=== PATIENT | male | born 1945 | race Caucasian/White ===

== ENCOUNTER 2025-01-26 10:39 | Day surgery (SDC) | payer MEDICARE, BC, SELFPAY ==
[2025-01-26] VITALS (16 sets, daily range): BP systolic 119–167; BP diastolic 59–109
[2025-01-26 11:09] LABS: Hematocrit 45.7 % (39.0-52.0); Hemoglobin 15.9 g/dL (13.0-18.0); Mean Corp Hgb Conc. 34.8 g/dL (33.0-37.0); Mean Corpuscular Hgb 30.4 pg (27.0-31.0); Mean Corpuscular Volume 87.4 fL (80.0-94.0); Mean Platelet Volume 11.3 fL (7.4-10.4); Platelet Count 169 10^3/uL (130-400); Red Blood Cell Count 5.23 10^6/uL (4.70-6.10); Red Cell Dist. Width 14.1 % (11.5-14.5); White Blood Cell Count 9.7 10^3/uL (4.8-10.8)
[2025-01-26 11:23] LABS: ALT (SGPT) 20 U/L (0-50); AST (SGOT) 23 U/L (17-59); Albumin 4.5 g/dl (3.5-5.0); Alkaline Phosphatase 51 U/L (38-126); Blood Urea Nitrogen 29 mg/dl (9-20); Calcium 9.6 mg/dl (8.4-10.2); Carbon Dioxide 25 mmol/L (22-30); Chloride 110 mmol/L (98-107); Estimated Creatinine Clearance 45 ml/min; Glucose 102 mg/dl (70-99); Potassium 4.7 mmol/L (3.5-5.1); Sodium 143 mmol/L (135-145); Total Bilirubin 1.1 mg/dl (0.2-1.3); Total Protein 6.8 g/dl (6.3-8.2); eGFR 51.45
[2025-01-26] MEDS: NSS 500 IV (11:45)
--- NOTE | 2025-01-26 12:46 | W.ICD.CONTRA ---
Post ICD/OIL BURNER INSTALLER-D
-
History of MT?: No
LV Function
Left ventricular function study result?: Ejection Fraction </= 35%
ACEI/ARB/ARNI
Patient already on ACEI/ARB/ARNI: Yes
Beta-Mark
Patient already on Beta Mark: Yes
--- NOTE | 2025-01-26 14:03 | ITS.CL.ICD ---
Interventional Radiology Tech - ICD
Implantable Cardioverter Defibrillator
Procedure Report:
Primary Physician: Dr Keron Mendieta
Primary 5Th Grade Teacher: Dr Blayne Enamorado
Procedure Date: 01/26/2025
Procedure:
1: Implantation of TRIMMING CUTTER MACHINE-D utilizing LBBAP pacing lead for conduction system pacing
2: Subclavian venography
Indication/Diagnosis:
1. LBBB with baseline QRS > 120 msec
2. CHF - NYHA class 3
3. LVEF < 35% on maximally tolerated GDMT for >90 days (limited by BP and HR)
HISTORY: Please see office H&P.
After informed consent was obtained, the patient was brought to the EP laboratory in a postabsorptive, nonsedated state. Peripheral IV access was established. Prophylactic antibiotics were administered prior to incision. Continuous ECG, blood
pressure, and pulse oximetry were initiated. Cardioversion patch electrodes were placed on the patient's chest and back. A grounding patch was applied to the skin. Sedation was administered by anesthesia.
In order to define the extrathoracic portion of the subclavian vein and exclude significant venous obstruction or anomalous anatomy, subclavian venography was performed prior to the procedure. Using the patient's left peripheral IV, contrast was
injected and images were recorded. The left subclavian vein and SVC were found to be widely patent.
The left chest was prepared and draped in a sterile fashion. A 'time out' was called and confirmed. Local anesthesia was injected in the subcutaneous tissue in the infraclavicular area. An incision was made medial to the deltopectoral groove and
parallel to the clavicle. The subcutaneous tissue was dissected the level of the prepectoral fascia. A subcutaneous pocket was created. Under fluoroscopic guidance and with the assistance of the images from the venogram, three separate
venipunctures were made using micropuncture and modified Seldinger technique. These was performed in the extrathoracic portion of the subclavian vein. Guidewires were passed. Peel-away sheaths were placed, and were used to advance the leads into
the circulation.
Using fluoroscopic guidance, the leads were positioned. The RV lead was advanced to the RV outflow tract. Ventricular ectopy was recorded. Images were taken in DURON and ALECIA views to ensure appropriate lead placement. The lead tip was subsequently
positioned in the RV apex. Adequate sensing and pacing parameters were found, and no diaphragmatic stimulation was seen with high-output pacing.
Fluoroscopy was used to determine likely anatomic site for left bundle branch pacing. The Hyperfair C315 sheath was used to deliver the Hyperfair 3830 Selectsecure pacing lead with the helix exposed just exposed from the sheath tip during continuous
monitoring when pacemapping the septum during gentle clockwise rotation to obtain a paced QRS morphology of a W pattern in lead V1. Once the suspected optimal site was identified, lead deployment was performed with several rapid rotations as paced
QRS morphology was intermittently monitored until a paced QRS complex in lead V1 demonstrated development of an R wave (qR or rSR). Unipolar pacing impedance dropped by approximately 100 ohms suggesting it had reached the left ventricular
subendocardial. Stable VEgm injury current is present throughout lead position and at end of case. Final unipolar pacing impedance is 1000 Ohms. Unipolar pacing threshold is stable at 1.0 V @ 0.4 ms. The patient had pre-existing left bundle branch
block at baseline. Final conduction system paced QRS complex duration is 115 ms, LVAT is 60 ms, and peak V5 -> peak V1 timing is 62 ms. The C315 sheath was slit under fluoroscopy ensuring lead position and stability.
Next, the right atrial lead was positioned in the right atrial appendage. Adequate sensing and pacing parameters were found, and no diaphragmatic stimulation was seen with high-output pacing. All sheaths were split, and the leads were secured to
the fascia with Ethibond ties.
The pocket was flushed with antibiotic solution and hemostasis was assured. The generator was connected to the leads and placed inside the pocket and sutured in place. Antibiotic envelope was used. The wound was closed with 3 running layers of
absorbable suture, and steri-strips were applied. Defibrillator function testing was deferred.
Following the procedure, the patient was taken to the recovery area in stable condition. A chest x-ray was obtained as routine post-procedure care.
IMPLANTS:
Device: Medtronic Model MIIU3R6, SN: [id number]
RA: Medtronic, Model 5076, SN: [id number]
RV ICD: Medtronic, Model 9695X86, SN: [id number]
RV LBBAP: Medtronic 3830, SN:[id number], Interventricular septum at LBB
DEVICE TESTING:
RA: Sensing 1.6 mV, Capture 1.0V @ 0.4 msec, Impedance 437 ohms
RV (ICD lead): Sensing 9.4 mV, Capture 0.5V @ 0.4 msec, Impedance 551 ohms
RV (LBBAP lead): Sensing 5.0 mV, Capture 0.5V @ 0.4 msec, Impedance 722 ohms
FINAL PROGRAMMING
Jayson Parameters: DDD with 70 to 130 ppm
Tachy Parameters: 150-167 monitor, 167-188 VT zone with iATP; >188 VF zone with ATP + shocks
COMPLICATIONS:
There were no complications.
CONCLUSIONS:
1: Successful implantation of TRIMMING CUTTER MACHINE-D utilizing LBBAP pacing lead for conduction system pacing/resynchronization
2: Venogram
RECOMMENDATIONS:
- Admit
- Chest x-ray tonight, [facility] in AM.
- IV antibiotics while the patient is admitted.
- OK to resume home medications as indicated
- Pressure dressing to be removed in AM, aquacell to remain until wound check
- Follow-up will be arranged in the office in 7-10 days post-discharge for incision check
Huang Hinds DO, FACC, [facility]
Clinical Cardiac Balance Wheel Hand Filer
cc: Dr Keron Mendieta; Dr Blayne Enamorado
--- NOTE | 2025-01-26 16:59 | PTCARENOTE ---
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 AO x3. AV paced BBB, occasional PVC's. Surgical left chest dressing CDI with immobilizer. VSS, oriented to room and call ortiz, at bedside
[2025-01-26] MEDS: ASPIRIN 325 MG PO (17:50)
[2025-01-26] MEDS: CRESTOR 5 MG PO (17:50)
[2025-01-26 20:00] LABS: Hepatitis C Antibody Negative (Negative)
[2025-01-26] MEDS: COREG 25 MG PO (20:39)
[2025-01-26] MEDS: ANCEF 5 IV (22:15)
[2025-01-26] MEDS: TYLENOL 650 MG PO (22:17)
--- NOTE | 2025-01-26 23:11 | PTCARENOTE ---
assumed care of patient at the change of shift. resting in the chair comfortably. AP/MACHINE FARMWORKER paced on tele 70s. bp stable. L chest site CDI. arm immobilizer intact. reviewed activity restrictions with the patient and verbalized understanding. patient
states 3/10 L shoulder stiffness/pain- PRN Tylenol given, see mar. independent in the room. steady on his feet. call ortiz within reach. makes needs known.
[2025-01-26] MEDS: NSS IV (23:24)
[2025-01-27 04:39] VITALS: BP 136/79
[2025-01-27 04:40] VITALS: BP 136/79
[2025-01-27] MEDS: TYLENOL 650 MG PO (04:46)
[2025-01-27 04:48] VITALS: BMI 26.6
[2025-01-27 04:58] LABS: Hematocrit 45.8 % (39.0-52.0); Hemoglobin 15.6 g/dL (13.0-18.0); Mean Corp Hgb Conc. 34.1 g/dL (33.0-37.0); Mean Corpuscular Hgb 29.8 pg (27.0-31.0); Mean Corpuscular Volume 87.4 fL (80.0-94.0); Mean Platelet Volume 11.2 fL (7.4-10.4); Platelet Count 145 10^3/uL (130-400); Red Blood Cell Count 5.24 10^6/uL (4.70-6.10); Red Cell Dist. Width 13.9 % (11.5-14.5); White Blood Cell Count 10.4 10^3/uL (4.8-10.8)
[2025-01-27 05:25] LABS: Blood Urea Nitrogen 29 mg/dl (9-20); Calcium 9.6 mg/dl (8.4-10.2); Carbon Dioxide 21 mmol/L (22-30); Chloride 111 mmol/L (98-107); Estimated Creatinine Clearance 45 ml/min; Glucose 94 mg/dl (70-99); Potassium 4.6 mmol/L (3.5-5.1); Sodium 142 mmol/L (135-145); eGFR 51.45
[2025-01-27 06:00] VITALS: BMI 26.6
[2025-01-27] MEDS: ANCEF 5 IV (06:04)
--- NOTE | 2025-01-27 07:41 | W.PN.CARDCBS ---
Addendum entered and electronically signed by Huang Hinds DO 01/27/25 10:22:
I saw and examined the patient.
The Lathe Setup Operator's note was reviewed and I agree with the note.
Comment:
Patient seen and examined this morning. No acute events overnight. Patient resting comfortably in bed. Patient denies any chest discomfort, shortness of breath, palpitations, or weakness. Mild tenderness at device site improved with Tylenol.
GENERAL: no acute distress
EYE: sclera anicteric
NECK: Supple, no JVD, no carotid bruit appreciated
ENT: normal nose, moist mucosal membranes
CARDIAC: Regular rate and rhythm, +S1/S2, no murmur, rubs, or gallops; left-sided CIED site dressing C/D/I; mild tenderness to palpation no swelling
CHEST/PULMONARY: Normal effort, clear breath sounds
ABDOMEN: Soft, without focal tenderness or distention
NEUROLOGICAL: Alert and oriented x3
SKIN: Warm and dry, no rash
PSYCH: Normal and appropriate interaction.
Telemetry shows a paced V paced rare PVCs
Device interrogation this morning shows stable device sensing, pacing, lead impedances; no tachycardia therapies
EKG A paced V paced with occasional PVC; QRS duration 102 ms
Chest x-ray stable no pneumothorax
A/P as below
Patient is status post LAB ASSISTANT-D with conduction system lead in the setting of nonischemic cardiomyopathy/left bundle branch block with NYHA III heart failure symptoms and EF less than 35% despite goal-directed medical therapy for greater than 90 days.
Continue current medical therapies
Incision check next week
Discussed restrictions again with patient
Stable for discharge home with follow-up in office to schedule
Original Note:
Today's Communication / Plan
-
activity restrictions reviewed
incision check next week
home today
Impression / Plan
-
PCP: Keron Mendieta MD
CDY: Jesus Enamorado MD
79 y/o, PMH sig for NICM, chronic systolic HFrEF 33%, frequent PVC/bigemeny, CKD3a, LBBB. Progressive sob, fatigue, LH/dizzy. NST w/reduced EF to 33%, no ischemia.
S/P implantation of dual chamber LAB ASSISTANT-D utilizing LBBAP pacing lead for conduction system pacing/resynchronization.
IMPRESSION:
NICM
Chronic systolic HFrEF 33%
LBBB
s/p dual chamber ICD w/LBBAP pacing lead, 01/26/25
Frequent PVC/bigemeny
CKD3a
HTN
HLD
GERD
LVH
PLAN:
Tele- AV paced w/PVCs
Device site stable
post cxr w/stable lead position, no pneumothorax
activity restrictions reviewed
creat stable post procedure
continue GDMT as before
incision check in 1 week at [facility]
home today
Progress Note - Materials And Corrosion Engineer
Subjective
Date of Service: January 27, 2025
Denies cp/palps/dyspnea
oob ambulating
device site without pain
Objective
Labs:
01/27/25 04:40
01/27/25 04:40
Labs
Hgb 15.6 g/dL (13.0-18.0) 01/27/25 04:40
Hct 45.8 % (39.0-52.0) 01/27/25 04:40
Plt Count 145 10^3/uL (130-400) 01/27/25 04:40
Sodium 142 mmol/L (135-145) 01/27/25 04:40
Potassium 4.6 mmol/L (3.5-5.1) 01/27/25 04:40
BUN 29 mg/dl (9-20) H 01/27/25 04:40
Creatinine 1.4 mg/dL (0.7-1.3) H 01/27/25 04:40
Glucose 94 mg/dl (70-99) 01/27/25 04:40
Vital Signs and I&O:
Vital Signs
Temp Pulse Resp BP Pulse Ox
97.3 F 71 18 136/79 95
01/27/25 04:39 01/27/25 05:15 01/27/25 04:39 01/27/25 04:40 01/27/25 04:39
Vital Signs
Temp Pulse Resp BP Pulse Ox
97.3 F 71 18 136/79 95
01/27/25 04:39 01/27/25 05:15 01/27/25 04:39 01/27/25 04:40 01/27/25 04:39
Intake & Output
01/25/25 01/26/25 01/27/25 01/28/25
06:59 06:59 06:59 06:59
Intake Total 450 / 450
Balance 450 / 450
Physical Exam
Physical Exam
AAOx3, AMAEE 5/5
RRR S1 S2 no murmurs
CTA bilat, non labored
left ACW w/aquacel dressing CDI, no ht/bleeding, non tender
bilat extremties w/palpable distal pulses, no edema
[2025-01-27 07:58] VITALS: BP 135/82
[2025-01-27 08:00] VITALS: BP 135/82
--- NOTE | 2025-01-27 08:13 | PTCARENOTE ---
Patient sitting oob in the chair this morning. Dressing left upper chest is dry and intact. Patient seen by Dr. Hogue and is for discharge today.
[2025-01-27] MEDS: COREG 25 MG PO (08:42)
[2025-01-27] MEDS: COZAAR 50 MG PO (08:42)
[2025-01-27] MEDS: NORVASC 2.5 MG PO (08:43)
[2025-01-27] MEDS: ZETIA 10 MG PO (08:43)
[2025-01-27] MEDS: PROTONIX 20 MG PO (08:43)
--- NOTE | 2025-01-27 10:44 | PTCARENOTE ---
Reviewed discharge instructions with the patient and his and they state their understanding. 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
--- NOTE | 2025-01-27 13:08 | W.DS.TRANS ---
DC Summary - School Of Nursing Director
-
Discharge Instructions:
Discharge Diagnosis/Procedures ICD implant with Left Bundle pacing lead
Diet Low Cholesterol
Driving Restrictions No driving for 1 week
Instructions:
Stand-Alone Forms: DC Inst - Implanted Device
Changes to Home Medications: No
Discharge Medications:
DC Medications w/original date entered in [employer]
lansoprazole 15 mg capsule,delayed release 15 mg PO DAILY 11/28/16
losartan 50 mg tablet 50 mg PO DAILY 11/28/16
multivitamin 1 ea PO DAILY 11/28/16
amlodipine 5 mg tablet 2.5 mg PO DAILY 01/26/25
aspirin 325 mg tablet 325 mg PO QPM 01/26/25
budesonide-formoterol HFA 80 mcg-4.5 mcg/actuation aerosol inhaler (Symbicort) 2 puff inhalation BID 01/26/25
carvedilol 25 mg tablet 25 mg PO BID 01/26/25
coQ10 (ubiquinol) 100 mg capsule 100 mg PO QPM 01/26/25
ezetimibe 10 mg tablet 10 mg PO DAILY 01/26/25
mecobalamin (vitamin B12) 1,000 mcg chewable tablet (B12 Active) 1,000 mcg PO QPM 01/26/25
omega-3 fatty acids 1,000 mg PO BID 01/26/25
rosuvastatin 5 mg tablet 5 mg PO QPM 01/26/25
Home Medication Changes
Pending Results: No
== END 2025-01-27 10:15 | disposition home or self-care (01) ==
LOC: CATH 10:39
PROVIDERS: Nurse Practitioner; ATTENDING PHYSICIAN Internal Medicine Cardiovascular Disease; FAMILY PHYSICIAN Family Medicine; OTHER PHYSICIAN Internal Medicine Cardiovascular Disease
DX: I13.0 Hypertensive heart and chronic kidney disease with heart failure and stage 1 through stage 4 chronic kidney disease, or unspecified chronic kidney disease (principal); I50.22 Chronic systolic (congestive) heart failure; I44.7 Left bundle-branch block, unspecified; I42.8 Other cardiomyopathies; E78.5 Hyperlipidemia, unspecified; I49.3 Ventricular premature depolarization; R00.8 Other abnormalities of heart beat; K21.9 Gastro-esophageal reflux disease without esophagitis; Z79.82 Long term (current) use of aspirin; Z79.899 Other long term (current) drug therapy; I49.5 Sick sinus syndrome; N18.31 Chronic kidney disease, stage 3a; Z88.5 Allergy status to narcotic agent; Z88.8 Allergy status to other drugs, medicaments and biological substances
CPT/HCPCS: 33249; 71045; 80048; 80053; 85027; 86803; 93005; C1769; C1777; C1882; C1892; C1898; Q9967

== ENCOUNTER → 2025-04-12 09:21 | Outpatient (REF) | payer MEDICARE, BC, SELFPAY ==
[2025-04-12 10:06] LABS: Hematocrit 50.0 % (39.0-52.0); Hemoglobin 16.6 g/dL (13.0-18.0); Mean Corp Hgb Conc. 33.2 g/dL (33.0-37.0); Mean Corpuscular Volume 91.2 fL (80.0-94.0); Nucleated Red Blood Cells % 0 % (-); Platelet Count 165 10^3/uL (130-400); Red Cell Dist. Width 13.8 % (11.5-14.5)
[2025-04-12 10:11] LABS: INR 1.20; PT 15.5 Sec (11.4-14.6)
[2025-04-12 10:32] LABS: ALT (SGPT) 27 U/L (0-50); AST (SGOT) 29 U/L (17-59); Albumin 4.7 g/dl (3.5-5.0); Alkaline Phosphatase 58 U/L (38-126); Blood Urea Nitrogen 28 mg/dl (9-20); Calcium 9.8 mg/dl (8.4-10.2); Carbon Dioxide 29 mmol/L (22-30); Chloride 106 mmol/L (98-107); Glucose 96 mg/dl (70-99); Magnesium 2.1 mg/dl (1.6-2.3); Potassium 4.5 mmol/L (3.5-5.1); Sodium 141 mmol/L (135-145); Total Protein 7.2 g/dl (6.3-8.2); eGFR 47.06
== END ==
LOC: SDSPAT 09:21
PROVIDERS: ATTENDING PHYSICIAN Internal Medicine Cardiovascular Disease; FAMILY PHYSICIAN Family Medicine; OTHER PHYSICIAN Internal Medicine Cardiovascular Disease
DX: I48.91 Unspecified atrial fibrillation (principal)
CPT/HCPCS: 36415; 75572; 80053; 83735; 85025; 85610; 86850; 86900; 86901; 93005; Q9967

== ENCOUNTER 2025-04-26 05:49 | Day surgery (SDC) | payer MEDICARE, BC, SELFPAY ==
[2025-04-12 09:31] VITALS: BMI 27.6
[2025-04-26] VITALS (12 sets, daily range): BP systolic 120–153; BP diastolic 76–112; BMI 25.8
--- NOTE | 2025-04-26 07:28 | ITS.CL.ABL ---
Sanitation Worker - Ablation
Ablation
Procedure Report:
Primary Sas Clinical Programmer: Dr Blayne Enamorado
Procedure Date: 04/26/2025
Patient History:
Patient is a pleasant 80-year-old male with a past medical history significant for nonischemic cardiomyopathy, nonobstructive CAD, hypertension, left bundle branch block, LVH, hyperlipidemia, PVCs, symptomatic persistent atrial fibrillation.
See H&P for complete details.
Indication:
Symptomatic persistent atrial fibrillation
Heart failure with reduced ejection fraction
Arrhythmia Specific History:
Prior Medical Therapies for Rate and Rhythm Control:
X Beta-etta
[ ] Calcium channel-etta
[ ] Amiodarone
[ ] Dronederone
[ ] Sotalol
[ ] Flecainide
[ ] Dofetilide
[ ] Options limited by bradycardia
[ ] Options limited by comorbid renal disease
Prior Procedural Therapies for AF/AFL:
[ ] Cardioversion
[ ] Pulmonary Vein Isolation
[ ] Posterior Wall Isolation
[ ] Additional lines (Specify)
[ ] Surgical [place]orga-MAZE or PVI (Specify)
Procedure Performed:
X AF ablation procedure (74350) -- includes LA/CS pacing, trans-septal, 3D mapping, + ICE
[ ] +IV drug (03293)
[ ] +Other Arrhythmia (14980)
X +Other AF Line/ablation (38680) x2, floor line roof line, posterior wall isolation
Risks and expected recovery has been explained in detail. Alternative options have been explored, and in a shared-decision making fashion we have decided that this was the most appropriate procedure.
Method
NPO status confirmed. Grounding pad applied. Defibrillator pads applied. Continuous surface ECG, pulse oximetry, and blood pressure were monitored. Procedure was performed under general anesthesia, with anesthesia services. Tachycardia therapies
from device were turned off.
Both groins were clipped, prepped with Chloraprep, and draped in sterile fashion. Time out was called. Local anesthesia administered with bupivacaine. The right femoral vein was accessed for catheter placement, using ultrasound guidance (images
saved to record), micro-puncture needle/wire, and modified seldinger technique. 3 sheaths were placed. The following catheters were used:
[ ] Tacticath SE (D/F Curve) ablation catheter
X Viewflex 9Fr ICE catheter
X Inquiry decapolar 6Fr diagnostic catheter
[ ] CRD Hex 6Fr
X FlexCath Contour 10 Fr with PulseSelect PFA Catheter
X Advisor HD Grid Mapping Catheter, SE
[ ] AcuseMeter AcuNav 8 Fr ICE catheter
[ ]Other: [ ]
Intracardiac ultrasound (ICE) was carefully advanced into the right atrium to guide sheath placement over a J-wire, catheter placement, guide trans-septal puncture, identify potential complications, identify anatomic structures and ensure proper
contact between ablation catheter and tissue. A trace/small basal LV pericardial effusion was noted at the initiation of procedure. This remained unchanged throughout procedure and the case completion.
Heparin was given prior to trans-septal puncture. Heparin was given to achieve and maintain a target ACT of 300-400 seconds throughout the procedure.
Trans-septal access was performed under ICE guidance. The trans-septal puncture was performed with a SafeSept wire through a Brockenbrough needle assembly through the steerable sheath. The wire was visualized as it entered the LSPV and system
advanced under ICE guidance and fluoroscopy into the LA. The Brockenbrough needle assembly, SafeSept wire and sheath dilator were removed under negative pressure. LA pressure was measured and recorded.
ICE and 3D mapping was performed to identify relevant cardiac structures. A careful 3D map was created to assess for regions of low-voltage and abnormal electrogram signals using HD grid mapping catheter and PulseSelect catheter. Additional mapping
was performed as outlined below.
Prior to ablation, glycopyrrolate was provided. PulseSelect catheter was advanced over J-wire to the ostium of each vein. Pulmonary vein isolation was performed with ostial and antral lesions in a circumferential manner. Contact was visualized via
EAM, ICE, fluoroscopy, and EGM signals.
After accomplishing pulmonary venous isolation, mapping identified additional areas likely to be extra PV contributors to atrial fibrillation. These areas demonstrated patchy low voltage as well as complex fractionated electrograms. These areas can
be sites for the formation of rotors which can drive and maintain atrial fibrillation. These areas are known to be significant contributors to initiation and perpetuation of atrial fibrillation.
Additional energy applications/additional ablation sets targeted extra PV contributors to atrial fibrillation.
Targets for additional PFA ablation included: LA posterior wall targeted with pulsed electric field energy isolating the posterior wall of the left atrium. Posterior wall isolation was performed by anchoring the J-wire within the pulmonary vein and
placing the PulseSelect catheter in contact posterior wall as visualized by aforementioned methods.
After ablation of the posterior wall, targets remained including:
- Inferior LA floor
- Anterior LA roof
- The ridge of tissue between the left atrial appendage and the left sided pulmonary veins (Ligament of Rivas)
These areas were ablated using pulsed electric field energy eliminating the extra PV contributors to atrial fibrillation.
During ablation of the right superior pulmonary vein, patient had spontaneous return of sinus rhythm/a-paced rhythm. Following completion of ablation lesions, a post-ablation voltage/activation map was performed in sinus rhythm. Entrance and exit
block were confirmed for each vein and the posterior wall.
Catheter and sheath were removed from the left atrium and post-ablation intracardiac echo evaluation was consistent with pre-ablation with no changes and no change to pericardial effusion and there is no left atrial thrombus or left ventricle
thrombus seen. Electrophysiology study was performed; no induced arrhythmias; frequent PVCs and AV pacing were noted. Hemostasis was obtained with figure of 8 stitch for each groin and with manual pressure. Protamine was used for reversal.
Estimated Blood Loss
5 mL
Complications
None
Fluoroscopy: 3.9 minutes; 13.19 mGy; DAP 1.60
LA Pressure: Pre 7 mmHg, post 12 mmHg
Baseline Intervals:
Rhythm: AF
QRS: 127 ms
QT: 390 ms
QTc: 450 ms
Post-Procedure Intervals:
CA: 140 ms
QRS: 125 ms
QT: 411 ms
Recommendations
- Bedrest with straight-leg precautions as ordered
- Anticipate same day discharge if patient meeting clinical metrics
- Resume home medications as indicated
- Ok to resume anticoagulation tonight if patient and groin sites stable
- Plan for follow-up in office as scheduled
Huang Hinds, , FACC, [facility]
Clinical Cardiac Head Up Operator Helper
cc: Dr Blayne Eanmorado; Dr Keron Mendieta
[2025-04-26 08:57] LABS: ACT-LR - POC 319 Seconds (116-155)
[2025-04-26 09:41] LABS: ACT-LR - POC > 397 Seconds (116-155)
[2025-04-26 09:41] LABS: ACT-LR - POC > 397 Seconds (116-155)
[2025-04-26 09:47] LABS: ACT-LR - POC 374 Seconds (116-155)
[2025-04-26 10:09] LABS: ACT-LR - POC 343 Seconds (116-155)
[2025-04-26 10:14] LABS: ACT-LR - POC 187 Seconds (116-155)
[2025-04-26] MEDS: ANESTHETIC LOZENGE 1 LOZENGE PO (11:40)
[2025-04-26 14:04] LABS: ACT-LR - POC 269 Seconds (116-155)
--- NOTE | 2025-04-26 14:40 | W.PN.UPDATE ---
Update Note
Progress Note Update
Pt seen post PFA. Right groin site without ht/bleeding, non tender. OOB ambulating, urinating without difficulty. Post EKG AP/ZIGZAG MACHINE OPERATOR w/PVC, no acute changes. Resume pradaxa tonight at usual time. Followup with Dr. Powell in 2-3 weeks as scheduled. Home
today if groin site/tele remain stable.
== END 2025-04-26 15:15 | disposition home or self-care (01) ==
LOC: CATH 05:49
PROVIDERS: ATTENDING PHYSICIAN Internal Medicine Cardiovascular Disease; FAMILY PHYSICIAN Family Medicine; OTHER PHYSICIAN Internal Medicine Cardiovascular Disease
DX: I48.19 Other persistent atrial fibrillation (principal); E78.5 Hyperlipidemia, unspecified; I42.8 Other cardiomyopathies; I13.0 Hypertensive heart and chronic kidney disease with heart failure and stage 1 through stage 4 chronic kidney disease, or unspecified chronic kidney disease; I25.10 Atherosclerotic heart disease of native coronary artery without angina pectoris; I49.3 Ventricular premature depolarization; I49.5 Sick sinus syndrome; I50.22 Chronic systolic (congestive) heart failure; J44.9 Chronic obstructive pulmonary disease, unspecified; N18.30 Chronic kidney disease, stage 3 unspecified; Z87.891 Personal history of nicotine dependence; Z79.01 Long term (current) use of anticoagulants; Z79.51 Long term (current) use of inhaled steroids; Z79.899 Other long term (current) drug therapy; Z86.73 Personal history of transient ischemic attack (TIA), and cerebral infarction without residual deficits; Z87.442 Personal history of urinary calculi; Z88.5 Allergy status to narcotic agent; Z88.8 Allergy status to other drugs, medicaments and biological substances; Z90.49 Acquired absence of other specified parts of digestive tract; Z91.018 Allergy to other foods; Z95.0 Presence of cardiac pacemaker; I44.7 Left bundle-branch block, unspecified
CPT/HCPCS: 93657; C1732; C1730; C1733; C1769; C1894; 85347; 86900; 86901; 93005; 93656; C1766

== ENCOUNTER 2025-05-27 10:58 | Day surgery (SDC) | payer MEDICARE, BC, SELFPAY ==
[2025-05-27 11:37] VITALS: BMI 27.1
--- NOTE | 2025-05-27 12:03 | ITS.CL.CARDI ---
Terrapin Fisher - Cardioversion
Cardioversion
Procedure Report:
Date of Procedure: 05/27/25
Procedure: Cardioversion
Indication: Symptomatic atrial fibrillation
Performing Physician: Job Salazar MD
Technique: The patient was brought to the holding area. Signed informed consent was obtained. A time out was called and performed. The patient was anesthetized by the anesthesia service. Anticoagulation status was reviewed and appropriate. R2 pads
were placed anteriorly and posteriorly. A 200 J synchronized biphasic shock restored normal sinus rhythm without significant bradycardia. There were no complications.
Conclusion: Uncomplicated cardioversion from atrial fibrillation to sinus rhythm.
Recommendation: Routine post cardioversion care. 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
== END 2025-05-27 12:48 | disposition home or self-care (01) ==
LOC: CATH 10:58
PROVIDERS: ATTENDING PHYSICIAN Internal Medicine Cardiovascular Disease; FAMILY PHYSICIAN Family Medicine
DX: I48.0 Paroxysmal atrial fibrillation (principal); I49.3 Ventricular premature depolarization; Z79.01 Long term (current) use of anticoagulants; I10 Essential (primary) hypertension; I42.9 Cardiomyopathy, unspecified; E78.00 Pure hypercholesterolemia, unspecified
CPT/HCPCS: 92960; 93005